=== PATIENT | female | born 1990 | race Caucasian/White ===

== ENCOUNTER → 2018-03-02 | Emergency (ER) | payer OTHER ==
[~2018-03-02] VITALS: Ht 170.2 cm; Wt 59.0 kg
[~2018-03-02] MED LIST: CEFUROXIME500 MG PO; DOLOGESIC-DF 51 EACH PO; GILTUSS TR TAB1 EACH PO
== END | disposition home or self-care (01) ==
LOC: ER 22:47
DX: J32.8 Other chronic sinusitis (principal); R50.9 Fever, unspecified